=== PATIENT | male | born 1960 | race Caucasian/White ===

== ENCOUNTER → 2018-02-16 | Outpatient (CLI) | payer OTHER ==
--- NOTE | 2018-02-17 09:25 | Diagnostic Imaging Report ---
TECHNIQUE: Magnetic resonance imaging of the RIGHT hindfoot was performed WITHOUT injected contrast. HISTORY: Pain, ulceration COMPARISON: None available. DISCUSSION: Bone: No fracture. No infiltrating lesion. No T1 replacement. No acute fracture or osteonecrosis. Joints: No focal cartilage defect. Soft Tissues: Soft tissue ulceration of the plantar hindfoot. IMPRESSION: Plantar hindfoot ulceration without abscess or osteomyelitis. Signed by: Dr. Edin Metz M.D. on 02/17/2018 9:20 AM
== END ==
LOC: MRI 16:09
PROVIDERS: ATTEND Family Medicine
DX: E11.621 Type 2 diabetes mellitus with foot ulcer (principal); L97.411 Non-pressure chronic ulcer of right heel and midfoot limited to breakdown of skin; M79.671 Pain in right foot; L03.115 Cellulitis of right lower limb; B96.89 Other specified bacterial agents as the cause of diseases classified elsewhere